=== PATIENT | female | born 1955 | race Caucasian/White ===

== ENCOUNTER 2020-11-12 01:11 | Day surgery (SDC) | payer BC, SELFPAY ==
--- NOTE | 2020-11-11 08:31 | PM.HPGS ---
History of Present Illness History of Present Illness Consent: Risks, benefits, and alternatives have been discussed and questions answered. Patient agrees to proceed with procedure. Chief complaint: hx of colon polyps, family hx of colon ca Narrative: Kalli Muñoz is a 65 year old female who is due for colon cancer screening. She has a history of polyps and a family history of colon cancer. her father had colon cancer. Review of Systems Review of Systems: All systems reviewed & are unremarkable except as noted in HPI and below PMFSH Past Medical History Medical History Colon polyp COPD (chronic obstructive pulmonary disease) Diabetes HTN (hypertension) Hyperlipidemia Surgical History Surgical History H/O colonoscopy Family History Family History Mother Depression Family history of chronic obstructive pulmonary disease Father Family history of diabetes mellitus in first degree relative Other Carcinoma of colon Social History Social History Smoking packs per day: 1 Smoking cigarettes per day: 20.0 Years smoked: 50 Smoking pack-years: 50.00 Smoking status: Current every day smoker Tobacco type: cigarettes Alcohol intake: current Drinks per week: 10 Alcohol use details: WINE Substance use: never Substance use type: does not use Living arrangements: with family Spiritual care concerns: No Meds Home Medications and Allergies Home Medications Medication Instructions Recorded Confirmed Type alprazolam 0.25 mg PO BID PRN 11/11/20 11/11/20 History dapagliflozin [Farxiga] 10 mg PO DAILY 11/11/20 11/11/20 History duloxetine 60 mg PO DAILY 11/11/20 11/11/20 History eszopiclone 3 mg PO HS PRN 11/11/20 11/11/20 History ibuprofen [Advil] 200 mg PO Q6H PRN 11/11/20 11/11/20 History insulin glargine [Basaglar KwikPen 10 unit SUBCUT QPM 11/11/20 11/11/20 History U-100 Insulin] insulin glargine [Basaglar KwikPen 20 unit SUBCUT QAM 11/11/20 11/11/20 History U-100 Insulin] lisinopril 5 mg PO DAILY 11/11/20 11/11/20 History omeprazole 40 mg PO DAILY 11/11/20 11/11/20 History pravastatin 40 mg PO DAILY 11/11/20 11/11/20 History tramadol 100 mg PO HS PRN 11/11/20 11/11/20 History Allergies Allergy/AdvReac Type Severity Reaction Status Date / Time No Known Allergies Allergy Mild Verified 11/12/20 08:18 Exam Resp: Auscultation: clear to auscultation bilaterally Cardio: Rate: regular rate Rhythm: regular rhythm GI: GI Palp: Yes Soft to palpation and No Tenderness to palpation present (GI) Assessment and Plan Assessment and plan (1) Colon cancer screening: Code(s): Z12.11 - Encounter for screening for malignant neoplasm of colon Status: Acute Assessment and Plan: Colonoscopy with possible biopsy or polypectomy or cautery or injection of substances.
[2020-11-11 10:34] VITALS: BMI 25.8
[2020-11-12 08:22] VITALS: BP 133/77; PULSE 91; RESP 20; TEMP 36.8; O2SAT 100; BMI 26.8
[2020-11-12 08:36] LABS: Glucose Point of Care 161 mg/dl (65-105)
[2020-11-12] MEDS: LACTATED RINGERS 1,000 ML 150 ML IV CONT (08:36)
--- NOTE | 2020-11-12 08:37 | WPDANESEPPF ---
Anes - Initial Pre Proc Eval Procedure: Operation Date: 11/12/20 09:00 Proposed Procedures p Screening Colonoscopy - Juan Solitario MD Date/Time: 11/12/20 08:37 Surgeon: Juan Solitario MD Pre Op Diagnosis: hx of colon polyps, family hx of colon ca Patient Data Age: 65 Gender: F Height: 1.57 m Weight: 66.5 kg Last Vital Signs Temp 36.8 C 11/12/20 08:22 Pulse 91 11/12/20 08:22 Resp 20 11/12/20 08:22 BP 133/77 11/12/20 08:22 Pulse Ox 100 11/12/20 08:22 Allergies Allergy/AdvReac Type Severity Reaction Status Date / Time No Known Allergies Allergy Mild Verified 11/12/20 08:18 Home Medications Medication Instructions Recorded Confirmed Type alprazolam 0.25 mg PO BID PRN 11/11/20 11/11/20 History dapagliflozin [Farxiga] 10 mg PO DAILY 11/11/20 11/11/20 History duloxetine 60 mg PO DAILY 11/11/20 11/11/20 History eszopiclone 3 mg PO HS PRN 11/11/20 11/11/20 History ibuprofen [Advil] 200 mg PO Q6H PRN 11/11/20 11/11/20 History insulin glargine [Basaglar KwikPen 10 unit SUBCUT QPM 11/11/20 11/11/20 History U-100 Insulin] insulin glargine [Basaglar KwikPen 20 unit SUBCUT QAM 11/11/20 11/11/20 History U-100 Insulin] lisinopril 5 mg PO DAILY 11/11/20 11/11/20 History omeprazole 40 mg PO DAILY 11/11/20 11/11/20 History pravastatin 40 mg PO DAILY 11/11/20 11/11/20 History tramadol 100 mg PO HS PRN 11/11/20 11/11/20 History Laboratory Tests 11/12/20 08:33 POC Capillary Glucose 161 mg/dl H mg/dl (65-105) Patient hx anesthesia problems: none Family hx anesthesia problems: none PMFSH Past Medical History Medical History (Updated 11/12/20 @ 08:37 by Star Morris MD) Colon polyp COPD (chronic obstructive pulmonary disease) Diabetes HTN (hypertension) Hyperlipidemia Surgical History Surgical History (Updated 11/12/20 @ 08:38 by Star Morris MD) H/O colonoscopy Family History Family History Mother Depression Family history of chronic obstructive pulmonary disease Father Family history of diabetes mellitus in first degree relative Other Carcinoma of colon Social History Social History Smoking packs per day: 1 Smoking cigarettes per day: 20.0 Years smoked: 50 Smoking pack-years: 50.00 Smoking status: Current every day smoker Tobacco type: cigarettes Alcohol intake: current Drinks per week: 10 Alcohol use details: WINE Substance use: never Substance use type: does not use Living arrangements: with family Spiritual care concerns: No Anes - Eval Final PreProcedure Day of Procedure 11/12/20 08:37 Patient weight: overweight Heart: regular rate and rhythm Lungs: clear to auscultation Airway: Mallampati scale class II Neurological: alert and oriented Last oral intake: >/= 8 hours ASA classification: III Emergent: no Anesthetic plan: proceed Anesthesia type and monitoring: general GIVS and standard monitoring Informed Consent: The patient's anesthetic plan and its attendant risks and benefits were discussed with the patient/family/POA. Questions were solicited and answers provided to the satisfaction of the patient/family/POA.
[2020-11-12 09:16] VITALS: BP 111/70; PULSE 82; RESP 24; O2SAT 98
[2020-11-12 09:26] VITALS: BP 130/78; PULSE 69; RESP 18; O2SAT 100
[2020-11-12 09:36] VITALS: BP 137/72; PULSE 70; RESP 16; O2SAT 100
== END 2020-11-12 09:50 | disposition home or self-care (01) ==
PROVIDERS: PCP Physician Assistant; Visit Provider Internal Medicine Gastroenterology
PROC: 0DJD8ZZ Inspection of Lower Intestinal Tract, Via Natural or Artificial Opening Endoscopic (ICD-10-PCS; CPT 45378; principal; 2020-11-12 09:00)
DX: Z12.11 Encounter for screening for malignant neoplasm of colon (principal); D12.8 Benign neoplasm of rectum; J44.9 Chronic obstructive pulmonary disease, unspecified; I10 Essential (primary) hypertension; E78.5 Hyperlipidemia, unspecified; E11.9 Type 2 diabetes mellitus without complications; K57.30 Diverticulosis of large intestine without perforation or abscess without bleeding; K64.8 Other hemorrhoids; Z87.891 Personal history of nicotine dependence; Z80.0 Family history of malignant neoplasm of digestive organs
CPT/HCPCS: 45385; 82948; 88305; J2704; J7120